=== PATIENT | male | born 1975 | race Caucasian/White ===

== ENCOUNTER 2018-05-12 13:37 | Emergency (ER) | payer BC, MEDICAID ==
[2018-05-12] MEDS: CEPHALEXIN 500 MG CAP PO (16:26)
[2018-05-12] MEDS: TRIMETHOPRIM/SULFAMETHOX (DS) TAB PO (16:26)
== END 2018-05-12 16:35 | disposition home or self-care (01) ==
LOC: FTE 16:35
DX: L03.116 Cellulitis of left lower limb (principal); F17.210 Nicotine dependence, cigarettes, uncomplicated
CPT/HCPCS: 99283